=== PATIENT | female | born 1960 | race Caucasian/White ===

== ENCOUNTER 2016-12-21 11:36 | Emergency (ER) | payer OTHER ==
--- NOTE | 2016-12-21 13:04 | DIAGNOSTIC IMAGING REPORT ---
PROCEDURE: XR CHEST 2 VIEW INDICATION: SHORTNESS OF BREATH TECHNIQUE: PA and lateral views. COMPARISON: None. FINDINGS: Lungs are clear. Heart and mediastinum are normal. Thorax is normal. IMPRESSION: 1. Negative chest.
--- NOTE | 2016-12-21 14:00 | ED NURSING NOTES ---
Clinical Report - Nurses Formerly [facility] [address] [place] [address] 12/21/2016 11:37 Patient: LUIS CALDERÓN TRIAGE Triage time 11:40 Dec 21 2016. Acuity: LEVEL 3. Chief Complaint: DIZZINESS and WEAKNESS and (Per EMT vitals stable prior to coming in 100%RA SpO2, Patient woke up at 0330 with a GONZALEZ , she was dizzy and nauseaous at 0630, she started with chest pain and epigastric pain that has since resolved, patient has hx of GERD). SEPSIS SCREEN: Sepsis Screen. Negative (no infection suspected/documented). AYLIN COMA SCORE: [place] Coma Scale: 15- eyes open spontaneously (4); best verbal response- oriented x 4 (5); best motor response- obeys commands (6). --11:50 Silvia Arndt R.N. 11:40 12/21/16. BP: 146/71 (regular adult cuff) taken on the left arm, while lying. HR: 85. RR: 20 (regular). O2 saturation: 100% on room air. Temp: 98.1 F (oral). Pain level now: 0/10. --11:50 Silvia Arndt R.N. Weight: 65.7 kg stated. Height/Length: 62 inches Per Patient. BMI: 26.5. --11:46 Silvia Arndt R.N. Medications Zantac Oral. --11:44 Silvia Arndt R.N. Allergies Aspirin.(nausea) --11:44 Silvia Arndt R.N. History Arrived by EMS. Historian: EMS and patient. This started today. Onset. (0330). ( Patient game breathing very fast, she complained on numbness and tingling in extremities, she is now 8 minutes later breathing normally and numbness and tingling has gone away). She has had nausea, a headache, vomiting and weakness. Treatment AUDIO VISUAL COORDINATOR: None. PAST MEDICAL HX: Last normal menstrual period- 2006. ( GERD hx). SOCIAL HX: Smoker- current status unknown. Occasional alcohol use; consumes wine. No drug use. Infectious disease exposure. 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 ABUSE ASSESSMENT: No report of abuse. --11:50 Silvia Arndt R.N. PROBLEMS: Lumbar Radiculopathy. Gastroesophageal Reflux Disease. Headache. --11:44 Silvia Arndt R.N. ADDITIONAL SURGERIES: Appendectomy. Breast Biopsy. --11:44 Silvia Arndt R.N. Interventions ID band on patient. To treatment room. --11:50 Silvia Arndt R.N. PHYSICAL ASSESSMENT To room via stretcher. Patient gowned. ( Patient complains of diarrhea). GENERAL / NEURO / PSYCH: Oriented X 4. Appears in pain and anxious. Alert. Speech within normal limits. ( very anxious and hyperventilating). HEENT: No facial asymmetry noted. Pupils equal, round and reactive to light. RESPIRATORY: Mild respiratory distress (panicky). Breath sounds within normal limits. CVS: Normal sinus rhythm noted. Capillary refill less than 2 seconds. GI / : The patient has had nausea. Emesis noted. Has vomited once. Abdomen soft and nontender. Abnormal bowel sounds present. SKIN: Skin is warm. --11:52 Silvia Arndt R.N. NURSING PROGRESS NOTES The plan of care for this patient has been created. Monitoring of patient in place. Patient gowned. Head of bed elevated. Reassurance given. Two patient identifiers checked. Call light placed in reach. Side rails up x 2. Bed placed in lowest position. Brakes of bed on. Patient ready for evaluation- chart flagged and ED physician notified. --11:52 Silvia Arndt R.N. 11:54 12/21/2016 Site #1 started prior to arrival by EMS via IV in the right wrist with an 20g angiocath. --11:54 Silvia Arndt R.N. EKG time: (11:54). EKG was performed by a ashley and shown to the ED physician. --11:59 Rossy Mclaughlin 12:08 12/21/2016 Started bag #1 1000 mL IV Fluids IV NS (Saline); at 1000 mL/hr over 1 hour(s) via site #1 via dial-a-flow. Allergies verified and confirmed 5 rights. IV patency established. IV site checked: no pain, redness, or swelling. IV flushed thoroughly pre- and post-medication administration (EMS started in ambulance). --12:08 Silvia Arndt R.N. ( Patient cold and requests more blankets, dizzy still, GONZALEZ between temples). --12:19 Silvia Arndt R.N. 12:18 12/21/16. BP: 105/54 (regular adult cuff) taken on the left arm, while lying. HR: 78. RR: 18 (regular). O2 saturation: 98% on room air. Pain level now: 0/10. --12:19 Silvia Arndt R.N. Patient transported to radiology by [facility] with [employer]. (12:32 Dec 21 2016). --12:32 Silvia Arndt R.N. 12:46 12/21/2016 Zofran (Ondansetron HCl) IVP 4 mg given over 1 minute(s) via site #1. Allergies verified and confirmed 5 rights. IV patency established. IV site checked: no pain, redness, or swelling. IV flushed thoroughly pre- and post-medication administration. IVP given by RN. --12:46 Silvia Arndt R.N. Patient transported to radiology by [facility] [employer] [facility] [employer]. (12:46 Dec 21 2016). --12:46 Silvia Arndt R.N. 12:50 12/21/2016 IV Fluids IV NS Discontinued: bag #1 completed. Total amount infused: 1000 mL. IV patency established. IV site checked: no pain, redness, or swelling. IV flushed thoroughly. --12:50 Silvia Arndt R.N. Patient returned from radiology by [employer] [facility] [employer]. (12:55 Dec 21 2016). --12:55 Silvia Arndt R.N. 13:10 12/21/2016 Started bag #1 1000 mL IV Fluids IV NS (Saline); at 500 mL/hr over 2 hour(s) via site #1 via IV pump. Allergies verified and confirmed 5 rights. IV patency established. IV site checked: no pain, redness, or swelling. IV flushed thoroughly pre- and post-medication administration. --13:10 Silvia Arndt R.N. 13:13 12/21/2016 PHENERGAN (Promethazine HCl) IVP 12.5 mg given over 1 minute(s) via site #1. Allergies verified and confirmed 5 rights. IV patency established. IV site checked: no pain, redness, or swelling. IV flushed thoroughly pre- and post-medication administration. IVP given by RN. --13:13 Silvia Arndt R.N. ( Patients friend at bedside, patient placed on monitors and 2L NC). --13:14 Silvia Arndt R.N. 13:13 12/21/16. BP: 113/54 (regular adult cuff) taken on the left arm, while lying. HR: 74. RR: 16. O2 saturation: 100% on nasal cannula at 2 liters/minute. Pain level now: 0/10. --13:14 Silvia Arndt R.N. 13:15 12/21/2016 Zofran IVP Response: pain is improving. Symptoms are the same. The patient feels the same. --13:15 Silvia Arndt R.N. ( Patient felt very dizzy after receiving phenergan, explained to her to breath through her nose and out through her mouth in a controlled manner and she instantly started feeling better, dizziness went away. She wants to hold off on the Valium for now.). --13:21 Silvia Arndt R.N. ( Patient sleeping, easily aroused, feeling better, nausea gone away). --13:29 Sivlia Arndt R.N. 13:36 12/21/2016 PHENERGAN IVP Response: pain is gone now. Symptoms have improved the patient feels better. --13:36 Silvia Arndt R.N. 14:00 12/21/16. BP: 105/56 (regular adult cuff) taken on the left arm, while lying. HR: 82. RR: 16 (regular). O2 saturation: 98% on room air. Pain level now: 0/10. --14:24 Silvia Arndt R.N. Intake & Output Emesis output: 150 mL; return noted as brown. --12:00 Rossy Mclaughlin. DISPOSITION / DISCHARGE 14:24 12/21/2016 IV Fluids IV NS Discontinued: bag #2 discontinued upon discharge. Total amount infused: 634 mL. IV patency established. IV site checked: no pain, redness, or swelling. IV flushed thoroughly. --14:25 Silvia Arndt R.N. 14:37 12/21/2016 Site #1 removed upon discharge. Bandaid applied. --14:37 Silvia Arndt R.N. Departure time: 14:37 Dec 21 2016. Condition at departure: improved. No learning barriers present. Discharge instructions provided and reviewed with the patient. Reviewed warnings (No driving with anti nausea medication). Reviewed medication(s) side effects, precautions and dosing information. Prescription(s) given to the patient. Patient verbalized understanding. Written instructions provided in Macedonian. The patient was discharged by the physician. She was discharged home and accompanied by neighbor. She left the Emergency Department ambulatory and via private vehicle. Driving (neighbor). --14:37 Silvia Arndt R.N. 14:24 12/21/16. BP: 105/56. HR: 80. RR: 16 (regular). O2 saturation: 94% on room air. Temp: 98.2 F (oral). Pain level now: 0/10. --14:37 Silvia Arndt R.N. Locked/Released at 12/21/2016 14:40 by Silvia Arndt R.N.
--- NOTE | 2016-12-21 14:00 | ED ORDER SUMMARY ---
..... Patient: LUIS CALDERÓN OrderSheet [facility] VisitID: [id number] [place] [address] 56y, F Registration Date/Time: 12/21/2016 ORDER SHEET Weight: 65.7 kg (stated) Allergies: Aspirin GENERAL ORDERS: Chest 2V Urgent (12:20 12/21/2016 PHutchinson DO) (Ack 12:30 Harmannandez) (12:46 JSanders R.N.) Software Test Technician (Continuous) (12:20 12/21/2016 PHutchinson DO) (Ack 12:31 Harmannandez) (13:03 JSanders R.N.) UA-Culture if indicated Urgent (12:20 12/21/2016 PHutchinson DO) (Ack 12:31 Myriam) (14:25 JSanders R.N.) (Cancelled: Patient [id number] JSanders R.N.) Cardiac Panel Stat (12:20 12/21/2016 PHutchinson DO) (12:25 JSanders R.N.) BNP Urgent (12:20 12/21/2016 PHutchinson DO) (12:25 JSanders R.N.) Amylase Urgent (12:20 12/21/2016 PHutchinson DO) (12:25 JSanders R.N.) PT with INR Urgent (12:20 12/21/2016 PHutchinson DO) (12:25 JSanders R.N.) Oxygen (2 L/min) (NC) (12:20 12/21/2016 PHutchinson DO) (Ack 12:31 Harmannandez) (13:03 JSanders R.N.) Pulse oximeter (12:20 12/21/2016 PHutchinson DO) (12:24 JSanders R.N.) EKG - ER Stat (12:20 12/21/2016 PHutchinson DO) (12:24 JSanders R.N.) Vitals (12:20 12/21/2016 PHutchinson DO) (12:24 JSanders R.N.) CT Head wo Cont Urgent (12:38 12/21/2016 PHutchinson DO) (Ack 12:40 Myriam) (14:17 JSanders R.N.) (Cancelled: Patient [id number]:17 JSanders R.N.) MEDICATION ORDERS: Phenergan IV 12.5 mg (HIGH ALERT MEDICATION, NOW) (12:33 12/21/2016 [facility]) (Ack 12:46 JSanders R.N.) (13:13 JSanders R.N.) IV FLUIDS: IV NS : initial bolus 1000 mL (1000 mL/hr), then 1000 mL/hr for X1 (NOW) (12:06 12/21/2016 JSanders R.N. per protocol) (12:08 JSanders R.N.) IV NS : initial bolus 1000 mL (1000 mL/hr), then 500 mL/hr for X2 (NOW) (12:20 12/21/2016 [facility]) (Ack 12:46 JSanders R.N.) (13:10 JSanders R.N.) Zofran IV 4 mg (NOW) (12:33 12/21/2016 [facility]) (12:46 JSanders R.N.) Valium IV 2 mg (HIGH ALERT MEDICATION, NOW) (12:33 12/21/2016 [facility]) (Ack 12:46 JSanders R.N.) (Cancelled: Patient [id number]:25 JSanders R.N.) ORDER SHEET NOTES: [Electronically signed by Silvia Arndt R.N. (14:40 12/21/2016)] [Electronically signed by Javier Peña DO (17:16 12/21/2016)] [Electronically locked/signed by Silvia Arndt R.N. (14:40 12/21/2016)]
--- NOTE | 2016-12-21 14:00 | ED NURSING NOTES ---
Clinical Report - Nurses Formerly [facility] [address] [place] [address] 12/21/2016 11:37 Patient: LUIS CALDERÓN TRIAGE Triage time 11:40 Dec 21 2016. Acuity: LEVEL 3. Chief Complaint: DIZZINESS and WEAKNESS and (Per EMT vitals stable prior to coming in 100%RA SpO2, Patient woke up at 0330 with a GONZALEZ , she was dizzy and nauseaous at 0630, she started with chest pain and epigastric pain that has since resolved, patient has hx of GERD). SEPSIS SCREEN: Sepsis Screen. Negative (no infection suspected/documented). AYLIN COMA SCORE: [place] Coma Scale: 15- eyes open spontaneously (4); best verbal response- oriented x 4 (5); best motor response- obeys commands (6). --11:50 Silvia Arndt R.N. 11:40 12/21/16. BP: 146/71 (regular adult cuff) taken on the left arm, while lying. HR: 85. RR: 20 (regular). O2 saturation: 100% on room air. Temp: 98.1 F (oral). Pain level now: 0/10. --11:50 Silvia Arndt R.N. Weight: 65.7 kg stated. Height/Length: 62 inches Per Patient. BMI: 26.5. --11:46 Silvia Arndt R.N. Medications Zantac Oral. --11:44 Silvia Arndt R.N. Allergies Aspirin.(nausea) --11:44 Silvia Arndt R.N. History Arrived by EMS. Historian: EMS and patient. This started today. Onset. (0330). ( Patient game breathing very fast, she complained on numbness and tingling in extremities, she is now 8 minutes later breathing normally and numbness and tingling has gone away). She has had nausea, a headache, vomiting and weakness. Treatment UTILITY MECHANIC: None. PAST MEDICAL HX: Last normal menstrual period- 2006. ( GERD hx). SOCIAL HX: Smoker- current status unknown. Occasional alcohol use; consumes wine. No drug use. Infectious disease exposure. 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 ABUSE ASSESSMENT: No report of abuse. --11:50 Silvia Arndt R.N. PROBLEMS: Lumbar Radiculopathy. Gastroesophageal Reflux Disease. Headache. --11:44 Silvia Arndt R.N. ADDITIONAL SURGERIES: Appendectomy. Breast Biopsy. --11:44 Silvia Arndt R.N. Interventions ID band on patient. To treatment room. --11:50 Silvia Arndt R.N. PHYSICAL ASSESSMENT To room via stretcher. Patient gowned. ( Patient complains of diarrhea). GENERAL / NEURO / PSYCH: Oriented X 4. Appears in pain and anxious. Alert. Speech within normal limits. ( very anxious and hyperventilating). HEENT: No facial asymmetry noted. Pupils equal, round and reactive to light. RESPIRATORY: Mild respiratory distress (panicky). Breath sounds within normal limits. CVS: Normal sinus rhythm noted. Capillary refill less than 2 seconds. GI / : The patient has had nausea. Emesis noted. Has vomited once. Abdomen soft and nontender. Abnormal bowel sounds present. SKIN: Skin is warm. --11:52 Silvia Arndt R.N. NURSING PROGRESS NOTES The plan of care for this patient has been created. Monitoring of patient in place. Patient gowned. Head of bed elevated. Reassurance given. Two patient identifiers checked. Call light placed in reach. Side rails up x 2. Bed placed in lowest position. Brakes of bed on. Patient ready for evaluation- chart flagged and ED physician notified. --11:52 Silvia Arndt R.N. 11:54 12/21/2016 Site #1 started prior to arrival by EMS via IV in the right wrist with an 20g angiocath. --11:54 Silvia Arndt R.N. EKG time: (11:54). EKG was performed by a ashley and shown to the ED physician. --11:59 Rossy Mclaughlin 12:08 12/21/2016 Started bag #1 1000 mL IV Fluids IV NS (Saline); at 1000 mL/hr over 1 hour(s) via site #1 via dial-a-flow. Allergies verified and confirmed 5 rights. IV patency established. IV site checked: no pain, redness, or swelling. IV flushed thoroughly pre- and post-medication administration (EMS started in ambulance). --12:08 Silvia Arndt R.N. ( Patient cold and requests more blankets, dizzy still, GONZALEZ between temples). --12:19 Silvia Arndt R.N. 12:18 12/21/16. BP: 105/54 (regular adult cuff) taken on the left arm, while lying. HR: 78. RR: 18 (regular). O2 saturation: 98% on room air. Pain level now: 0/10. --12:19 Silvia Arndt R.N. Patient transported to radiology by [employer] [facility] [employer]. (12:32 Dec 21 2016). --12:32 Silvia Arndt R.N. 12:46 12/21/2016 Zofran (Ondansetron HCl) IVP 4 mg given over 1 minute(s) via site #1. Allergies verified and confirmed 5 rights. IV patency established. IV site checked: no pain, redness, or swelling. IV flushed thoroughly pre- and post-medication administration. IVP given by RN. --12:46 Silvia Arndt R.N. Patient transported to radiology by [employer] [facility] [employer]. (12:46 Dec 21 2016). --12:46 Silvia Arndt R.N. 12:50 12/21/2016 IV Fluids IV NS Discontinued: bag #1 completed. Total amount infused: 1000 mL. IV patency established. IV site checked: no pain, redness, or swelling. IV flushed thoroughly. --12:50 Silvia Arndt R.N. Patient returned from radiology by [employer] [facility] [employer] (12:55 Dec 21 2016). --12:55 Silvia Arndt R.N. 13:10 12/21/2016 Started bag #1 1000 mL IV Fluids IV NS (Saline); at 500 mL/hr over 2 hour(s) via site #1 via IV pump. Allergies verified and confirmed 5 rights. IV patency established. IV site checked: no pain, redness, or swelling. IV flushed thoroughly pre- and post-medication administration. --13:10 Silvia Arndt R.N. 13:13 12/21/2016 PHENERGAN (Promethazine HCl) IVP 12.5 mg given over 1 minute(s) via site #1. Allergies verified and confirmed 5 rights. IV patency established. IV site checked: no pain, redness, or swelling. IV flushed thoroughly pre- and post-medication administration. IVP given by RN. --13:13 Silvia Arndt R.N. ( Patients friend at bedside, patient placed on monitors and 2L NC). --13:14 Silvia Arndt R.N. 13:13 12/21/16. BP: 113/54 (regular adult cuff) taken on the left arm, while lying. HR: 74. RR: 16. O2 saturation: 100% on nasal cannula at 2 liters/minute. Pain level now: 0/10. --13:14 Silvia Arndt R.N. 13:15 12/21/2016 Zofran IVP Response: pain is improving. Symptoms are the same. The patient feels the same. --13:15 Silvia Arndt R.N. ( Patient felt very dizzy after receiving phenergan, explained to her to breath through her nose and out through her mouth in a controlled manner and she instantly started feeling better, dizziness went away. She wants to hold off on the Valium for now.). --13:21 Silvia Arndt R.N. ( Patient sleeping, easily aroused, feeling better, nausea gone away). --13:29 Silvia Arndt R.N. 13:36 12/21/2016 PHENERGAN IVP Response: pain is gone now. Symptoms have improved the patient feels better. --13:36 Silvia Arndt R.N. 14:00 12/21/16. BP: 105/56 (regular adult cuff) taken on the left arm, while lying. HR: 82. RR: 16 (regular). O2 saturation: 98% on room air. Pain level now: 0/10. --14:24 Silvia Arndt R.N. Intake & Output Emesis output: 150 mL; return noted as brown. --12:00 Rossy Mclaughlin. DISPOSITION / DISCHARGE 14:24 12/21/2016 IV Fluids IV NS Discontinued: bag #2 discontinued upon discharge. Total amount infused: 634 mL. IV patency established. IV site checked: no pain, redness, or swelling. IV flushed thoroughly. --14:25 Silvia Arndt R.N. 14:37 12/21/2016 Site #1 removed upon discharge. Bandaid applied. --14:37 Silvia Arndt R.N. Departure time: 14:37 Dec 21 2016. Condition at departure: improved. No learning barriers present. Discharge instructions provided and reviewed with the patient. Reviewed warnings (No driving with anti nausea medication). Reviewed medication(s) side effects, precautions and dosing information. Prescription(s) given to the patient. Patient verbalized understanding. Written instructions provided in Italian. The patient was discharged by the physician. She was discharged home and accompanied by neighbor. She left the Emergency Department ambulatory and via private vehicle. Driving (neighbor). --14:37 Silvia Arndt R.N. 14:24 12/21/16. BP: 105/56. HR: 80. RR: 16 (regular). O2 saturation: 94% on room air. Temp: 98.2 F (oral). Pain level now: 0/10. --14:37 Silvia Arndt R.N. Locked/Released at 12/21/2016 14:40 by Silvia Arndt R.N.
--- NOTE | 2016-12-21 14:00 | ED CLINICAL REPORT ---
Clinical Report - Physicians/Mid Levels [facility] [address] [place] [address] 12/21/2016 11:37 Patient: LUIS CALDERÓN Time Seen: 12:18. Arrived- By ambulance. Historian- patient and EMS personnel. HISTORY OF PRESENT ILLNESS Chief Complaint: DIZZINESS. Severity described as severe at its maximum. When seen in the E.D., severity described as severe. Modifying factors- worsened by standing up and changing position. Relieved by rest, quiet room and dark room. Described as a sense of movement and feeling off balance. Not described as feeling faint or weak all over or a sense of confusion. This started today and is still present. It was gradual in onset and has been waxing/waning. The patient has had nausea and vomiting. No bilious emesis or blood-tinged emesis. No hearing loss, tinnitus or ear pain. (Patient game breathing very fast, she complained on numbness and tingling in extremities, she is now 8 minutes later breathing normally and numbness and tingling has gone away). She has had nausea, a headache, vomiting and weakness). Similar symptoms previously: ( Seen at [facility] ED about 5 years ago for very similar symptoms). Recent medical care: Not recently seen/assessed. REVIEW OF SYSTEMS The patient has had a mild headache. The headache has been similar to previous ones and generalized weakness. No double vision, chest pain, palpitations, black stools or numbness. No fever, sore throat, cough, difficulty breathing or abdominal pain. No difficulty with urination, skin rash or joint pain. The patient has had difficulty walking. The patient has also had coordination problems. She has had diarrhea (today). This has occurred several times. It has been watery. All systems otherwise negative, except as recorded above. PAST HISTORY ( PCP: Dr Garrett ([facility]) Chronic lower back pain (with MRI revealing disc bulges and radiculopathy) Vertigo GERD. Migraine headache. SVT. Crush Injury, Upper Extremity. Surgeries: Appendectomy. Right breast lumpectomy.). Medications: Zantac Oral. Allergies: Aspirin.(nausea). SOCIAL HISTORY Never smoker. Occasional alcohol use. No drug use. ADDITIONAL NOTES The nursing notes have been reviewed. PHYSICAL EXAM Vital Signs: 12/21/2016 11:40 BP: 146/71. HR: 85. RR: 20. O2 saturation: 100%. Temp: 98.1 F. Pain level now: 0/10. Appearance: Alert. Anxious. The patient is agitated. Patient in moderate distress. Eyes: Pupils equal, round and reactive to light. Extraocular movements normal. ENT: Normal ENT inspection. TM's normal. Moist mucous membranes. Pharynx normal. Neck: Normal inspection. Neck supple. CVS: Normal heart rate and rhythm. Heart sounds normal. Pulses normal. Respiratory: No respiratory distress. Breath sounds normal. Abdomen: Soft and nontender. Back: Normal inspection. Skin: Skin warm and dry. Normal skin color. No rash. Normal skin turgor. Extremities: Extremities exhibit normal ROM. No lower extremity edema. Neuro: Alert. Oriented X 3. Abnormal mood/affect. Speech normal. Cranial nerves normal (as tested). No cerebellar findings. No motor deficit. No sensory deficit. Reflexes normal. Reflex exam: right patellar 2+, left patellar 2+, right Achilles 2+ and left Achilles 2+. LABS, X-RAYS, AND EKG EKG: EKG time: (11:54). Normal sinus rhythm. Rate: 75. Normal P waves. Normal TEDDY. Normal QRS complex. Normal axis. Normal ST and T waves. The study has been interpreted contemporaneously by me. The EKG appears to be a good tracing. Rhythm Strip #1: Normal sinus rhythm. Regular rhythm. Narrow QRS complexes. No ectopy. Laboratory Tests: CBC w Diff: (JOSIE: 12/21/2016 12:00) ( MsgRcvd 12/21/2016 12:37) Final results Test Result Flag Units (Reference) WHITE BLOOD COUNT 9.1 K/uL (4.5-11.5) RED BLOOD COUNT 4.98 M/uL (4.00-5.20) HEMOGLOBIN 14.9 gm/dL (12.0-16.0) HEMATOCRIT 44.2 % (36.0-46.0) MEAN CELL VOLUME 89 fL (80-100) MEAN CORPUSCULAR HGB 30 pg (26-34) MEAN CORPUSCULAR HGB CONC 34 g/dL (31-37) RED CELL DISTRIBUTION WIDTH 12.1 % (11.6-14.8) PLATELET COUNT 300 K/uL (150-400) NEUTROPHIL % 86.1 H % (50-75) LYMPH % 11.1 L % (25-40) MONO % 2.4 L % (3-14) EOSINOPHIL % 0.1 % (0-4) BASOPHIL % 0.3 % (0-2) PT with INR: (JOSIE: 12/21/2016 12:00) ( [facility] 12/21/2016 12:41) Final results Test Result Flag Units (Reference) INR 0.8 (0.8-1.2) Low Intensity Therapy: INR 1.5-2.0 PT range 18.5-23.1Mod.Intensity Therapy: INR 2.0-3.0 PT range 23.1-31.5High Intensity Therapy: INR 2.5-3.5 PT range 27.4-35.5High Intensity Therapy 2: INR 3.0-4.0 PT range 31.5-39.3 BNP: (JOSIE: 12/21/2016 12:00) ( [facility] 12/21/2016 13:01) Final results Test Result Flag Units (Reference) B-TYPE NATRIURETIC PEPTIDE 7.6 pg/ml (5-100) Amylase: (JOSIE: 12/21/2016 12:00) ( [facility] 12/21/2016 12:52) Final results Test Result Flag Units (Reference) AMYLASE 48 U/L (25-115) CHEM 13 PANEL: (JOSIE: 12/21/2016 12:00) ( [facility] 12/21/2016 13:09) Final results Test Result Flag Units (Reference) GLUCOSE 171 H mg/dL (70-110) BUN 13 mg/dL (7-18) CREATININE 0.8 mg/dL (0.6-1.3) Estimated GFR >60 mL/min Estimated GFR- >60 mL/min Note: Persistent reduction over 3 months in eGFR<60 mL/min/1.73 m2 defines CKD. Patients with eGFR values>=60 mL/min/1.73 m2 may also have CKD if evidence ofpersistent proteinuria. Additional information may be foundat www.kidney.org. SODIUM 137 mmol/L (136-145) POTASSIUM 3.2 L mmol/L (3.5-5.1) CHLORIDE 101 mmol/L (98-107) CARBON DIOXIDE 19 L mmol/L (21-32) CALCIUM 9.2 mg/dL (8.5-10.1) TOTAL PROTEIN 7.5 g/dL (6.4-8.2) ALBUMIN 3.8 g/dL (3.3-5.0) BILIRUBIN, TOTAL 0.6 mg/dL (0.0-1.0) ALKALINE PHOSPHATASE 51 U/L (46-116) AST (SGOT) 27 U/L (15-37) ALT (SGPT) 24 U/L (12-78) MAGNESIUM 1.7 L mg/dL (1.8-2.4) CPK 77 U/L (24-260) TROPONIN I <0.05 ng/mL (0.00-1.5) TROPONIN REFERENCE RANGE:<0.1 NEGATIVE0.1-1.5 INDETERMINANT>1.5 POSITIVE . Pulse Oximetry: 12/21/2016 11:40 O2 saturation: 100%. (FIO2 - room air). Interpretation: normal. PROGRESS AND PROCEDURES Course of Care: Normal Saline 1 liter IVPB given. Valium 2 mg IVP given. Phenergan 12.5 mg IVP given. Zofran 4 mg IVP given. 13:40 12/21/16. Patient is stable. Physical exam findings are improved. Symptoms much better. Normal CN exam. Pt has refused CT scan after full discussion of risks and benefits. Patient/family counseled. Old ED records reviewed. Disposition: Discharged. Condition: stable and improved. CLINICAL IMPRESSION Dizziness Acute vertigo of unknown cause. Diarrhea INSTRUCTIONS Do not work for three days. Drink plenty of fluids. No alcohol until released. (You have declined the CT scan of your head and understand that I cannot rule out other pathology without this). Warnings: Further evaluation is necessary. SEDATIVE MEDICATION: You were given sedative medication during your visit. Do not drive or operate dangerous machinery. CONTROLLED SUBSTANCE WARNINGS. GENERAL WARNINGS: Return or contact your physician immediately if your condition worsens or changes unexpectedly, if not improving as expected, or if other problems arise. Your Current Medications: CONTINUE TAKING THE FOLLOWING MEDICATIONS: Zantac Oral. Prescription Medications: Zofran (orally disintegrating tablets) 4 mg: take 1-2 orally every 8 hours as needed for nausea and vomiting. Dispense ten (10). No refill. Substitution is permissible. Valium 5 mg: Take 1 orally every 8 hours as needed for anxiety. Dispense fifteen (15). No refills. Substitution is permissible. Antivert 25mg: Take 1 tablet orally every 8 hours as needed for dizziness. Dispense thirty (30). No refills. Substitution is permissible. Follow-up: Follow up with your doctor [facility] - primary care or the Walk-in clinic tomorrow. (Electronically signed by Javier Peña DO 12/21/2016 17:16)
--- NOTE | 2016-12-21 14:00 | ED ORDER SUMMARY ---
..... Patient: LUIS CALDERÓN OrderSheet [facility] VisitID: [id number] [place] [address] 56y, F Registration Date/Time: 12/21/2016 ORDER SHEET Weight: 65.7 kg (stated) Allergies: Aspirin GENERAL ORDERS: Chest 2V Urgent (12:20 12/21/2016 PHutchinson DO) (Ack 12:30 Harmannandez) (12:46 JSanders R.N.) Renal Nurse (Continuous) (12:20 12/21/2016 PHutchinson DO) (Ack 12:31 Harmannandez) (13:03 JSanders R.N.) UA-Culture if indicated Urgent (12:20 12/21/2016 PHutchinson DO) (Ack 12:31 Myriam) (14:25 JSanders R.N.) (Cancelled: Patient [id number] JSanders R.N.) Cardiac Panel Stat (12:20 12/21/2016 PHutchinson DO) (12:25 JSanders R.N.) BNP Urgent (12:20 12/21/2016 PHutchinson DO) (12:25 JSanders R.N.) Amylase Urgent (12:20 12/21/2016 PHutchinson DO) (12:25 JSanders R.N.) PT with INR Urgent (12:20 12/21/2016 PHutchinson DO) (12:25 JSanders R.N.) Oxygen (2 L/min) (NC) (12:20 12/21/2016 PHutchinson DO) (Ack 12:31 Harmannandez) (13:03 JSanders R.N.) Pulse oximeter (12:20 12/21/2016 PHutchinson DO) (12:24 JSanders R.N.) EKG - ER Stat (12:20 12/21/2016 PHutchinson DO) (12:24 JSanders R.N.) Vitals (12:20 12/21/2016 PHutchinson DO) (12:24 JSanders R.N.) CT Head wo Cont Urgent (12:38 12/21/2016 PHutchinson DO) (Ack 12:40 Myriam) (14:17 JSanders R.N.) (Cancelled: Patient [id number] JSanders R.N.) MEDICATION ORDERS: Phenergan IV 12.5 mg (HIGH ALERT MEDICATION, NOW) (12:33 12/21/2016 [facility]) (Ack 12:46 JSanders R.N.) (13:13 JSanders R.N.) IV FLUIDS: IV NS : initial bolus 1000 mL (1000 mL/hr), then 1000 mL/hr for X1 (NOW) (12:06 12/21/2016 JSanders R.N. per protocol) (12:08 JSanders R.N.) IV NS : initial bolus 1000 mL (1000 mL/hr), then 500 mL/hr for X2 (NOW) (12:20 12/21/2016 [facility]) (Ack 12:46 JSanders R.N.) (13:10 JSanders R.N.) Zofran IV 4 mg (NOW) (12:33 12/21/2016 [facility]) (12:46 JSanders R.N.) Valium IV 2 mg (HIGH ALERT MEDICATION, NOW) (12:33 12/21/2016 [facility]) (Ack 12:46 JSanders R.N.) (Cancelled: Patient [id number] JSanders R.N.) ORDER SHEET NOTES: [Electronically signed by Silvia Arndt R.N. (14:40 12/21/2016)] [Electronically signed by Javier Peña DO (17:16 12/21/2016)] [Electronically locked/signed by Silvia Arndt R.N. (14:40 12/21/2016)]
--- NOTE | 2016-12-21 14:00 | ED CLINICAL REPORT ---
Clinical Report - Physicians/Mid Levels [facility] [address] [place] [address] 12/21/2016 11:37 Patient: LIUS CALDERÓN Time Seen: 12:18. Arrived- By ambulance. Historian- patient and EMS personnel. HISTORY OF PRESENT ILLNESS Chief Complaint: DIZZINESS. Severity described as severe at its maximum. When seen in the E.D., severity described as severe. Modifying factors- worsened by standing up and changing position. Relieved by rest, quiet room and dark room. Described as a sense of movement and feeling off balance. Not described as feeling faint or weak all over or a sense of confusion. This started today and is still present. It was gradual in onset and has been waxing/waning. The patient has had nausea and vomiting. No bilious emesis or blood-tinged emesis. No hearing loss, tinnitus or ear pain. (Patient game breathing very fast, she complained on numbness and tingling in extremities, she is now 8 minutes later breathing normally and numbness and tingling has gone away). She has had nausea, a headache, vomiting and weakness). Similar symptoms previously: ( Seen at [facility] ED about 5 years ago for very similar symptoms). Recent medical care: Not recently seen/assessed. REVIEW OF SYSTEMS The patient has had a mild headache. The headache has been similar to previous ones and generalized weakness. No double vision, chest pain, palpitations, black stools or numbness. No fever, sore throat, cough, difficulty breathing or abdominal pain. No difficulty with urination, skin rash or joint pain. The patient has had difficulty walking. The patient has also had coordination problems. She has had diarrhea (today). This has occurred several times. It has been watery. All systems otherwise negative, except as recorded above. PAST HISTORY ( PCP: Dr Garrett ([facility]) Chronic lower back pain (with MRI revealing disc bulges and radiculopathy) Vertigo GERD. Migraine headache. SVT. Crush Injury, Upper Extremity. Surgeries: Appendectomy. Right breast lumpectomy.). Medications: Zantac Oral. Allergies: Aspirin.(nausea). SOCIAL HISTORY Never smoker. Occasional alcohol use. No drug use. ADDITIONAL NOTES The nursing notes have been reviewed. PHYSICAL EXAM Vital Signs: 12/21/2016 11:40 BP: 146/71. HR: 85. RR: 20. O2 saturation: 100%. Temp: 98.1 F. Pain level now: 0/10. Appearance: Alert. Anxious. The patient is agitated. Patient in moderate distress. Eyes: Pupils equal, round and reactive to light. Extraocular movements normal. ENT: Normal ENT inspection. TM's normal. Moist mucous membranes. Pharynx normal. Neck: Normal inspection. Neck supple. CVS: Normal heart rate and rhythm. Heart sounds normal. Pulses normal. Respiratory: No respiratory distress. Breath sounds normal. Abdomen: Soft and nontender. Back: Normal inspection. Skin: Skin warm and dry. Normal skin color. No rash. Normal skin turgor. Extremities: Extremities exhibit normal ROM. No lower extremity edema. Neuro: Alert. Oriented X 3. Abnormal mood/affect. Speech normal. Cranial nerves normal (as tested). No cerebellar findings. No motor deficit. No sensory deficit. Reflexes normal. Reflex exam: right patellar 2+, left patellar 2+, right Achilles 2+ and left Achilles 2+. LABS, X-RAYS, AND EKG EKG: EKG time: (11:54). Normal sinus rhythm. Rate: 75. Normal P waves. Normal TEDDY. Normal QRS complex. Normal axis. Normal ST and T waves. The study has been interpreted contemporaneously by me. The EKG appears to be a good tracing. Rhythm Strip #1: Normal sinus rhythm. Regular rhythm. Narrow QRS complexes. No ectopy. Laboratory Tests: CBC w Diff: (JOSIE: 12/21/2016 12:00) ( MsgRcvd 12/21/2016 12:37) Final results Test Result Flag Units (Reference) WHITE BLOOD COUNT 9.1 K/uL (4.5-11.5) RED BLOOD COUNT 4.98 M/uL (4.00-5.20) HEMOGLOBIN 14.9 gm/dL (12.0-16.0) HEMATOCRIT 44.2 % (36.0-46.0) MEAN CELL VOLUME 89 fL (80-100) MEAN CORPUSCULAR HGB 30 pg (26-34) MEAN CORPUSCULAR HGB CONC 34 g/dL (31-37) RED CELL DISTRIBUTION WIDTH 12.1 % (11.6-14.8) PLATELET COUNT 300 K/uL (150-400) NEUTROPHIL % 86.1 H % (50-75) LYMPH % 11.1 L % (25-40) MONO % 2.4 L % (3-14) EOSINOPHIL % 0.1 % (0-4) BASOPHIL % 0.3 % (0-2) PT with INR: (JOSIE: 12/21/2016 12:00) ( [facility] 12/21/2016 12:41) Final results Test Result Flag Units (Reference) INR 0.8 (0.8-1.2) Low Intensity Therapy: INR 1.5-2.0 PT range 18.5-23.1Mod.Intensity Therapy: INR 2.0-3.0 PT range 23.1-31.5High Intensity Therapy: INR 2.5-3.5 PT range 27.4-35.5High Intensity Therapy 2: INR 3.0-4.0 PT range 31.5-39.3 BNP: (JOSIE: 12/21/2016 12:00) ( [facility] 12/21/2016 13:01) Final results Test Result Flag Units (Reference) B-TYPE NATRIURETIC PEPTIDE 7.6 pg/ml (5-100) Amylase: (JOSIE: 12/21/2016 12:00) ( [facility] 12/21/2016 12:52) Final results Test Result Flag Units (Reference) AMYLASE 48 U/L (25-115) CHEM 13 PANEL: (JOSIE: 12/21/2016 12:00) ( [facility] 12/21/2016 13:09) Final results Test Result Flag Units (Reference) GLUCOSE 171 H mg/dL (70-110) BUN 13 mg/dL (7-18) CREATININE 0.8 mg/dL (0.6-1.3) Estimated GFR >60 mL/min Estimated GFR- >60 mL/min Note: Persistent reduction over 3 months in eGFR<60 mL/min/1.73 m2 defines CKD. Patients with eGFR values>=60 mL/min/1.73 m2 may also have CKD if evidence ofpersistent proteinuria. Additional information may be foundat www.kidney.org. SODIUM 137 mmol/L (136-145) POTASSIUM 3.2 L mmol/L (3.5-5.1) CHLORIDE 101 mmol/L (98-107) CARBON DIOXIDE 19 L mmol/L (21-32) CALCIUM 9.2 mg/dL (8.5-10.1) TOTAL PROTEIN 7.5 g/dL (6.4-8.2) ALBUMIN 3.8 g/dL (3.3-5.0) BILIRUBIN, TOTAL 0.6 mg/dL (0.0-1.0) ALKALINE PHOSPHATASE 51 U/L (46-116) AST (SGOT) 27 U/L (15-37) ALT (SGPT) 24 U/L (12-78) MAGNESIUM 1.7 L mg/dL (1.8-2.4) CPK 77 U/L (24-260) TROPONIN I <0.05 ng/mL (0.00-1.5) TROPONIN REFERENCE RANGE:<0.1 NEGATIVE0.1-1.5 INDETERMINANT>1.5 POSITIVE . Pulse Oximetry: 12/21/2016 11:40 O2 saturation: 100%. (FIO2 - room air). Interpretation: normal. PROGRESS AND PROCEDURES Course of Care: Normal Saline 1 liter IVPB given. Valium 2 mg IVP given. Phenergan 12.5 mg IVP given. Zofran 4 mg IVP given. 13:40 12/21/16. Patient is stable. Physical exam findings are improved. Symptoms much better. Normal CN exam. Pt has refused CT scan after full discussion of risks and benefits. Patient/family counseled. Old ED records reviewed. Disposition: Discharged. Condition: stable and improved. CLINICAL IMPRESSION Dizziness Acute vertigo of unknown cause. Diarrhea INSTRUCTIONS Do not work for three days. Drink plenty of fluids. No alcohol until released. (You have declined the CT scan of your head and understand that I cannot rule out other pathology without this). Warnings: Further evaluation is necessary. SEDATIVE MEDICATION: You were given sedative medication during your visit. Do not drive or operate dangerous machinery. CONTROLLED SUBSTANCE WARNINGS. GENERAL WARNINGS: Return or contact your physician immediately if your condition worsens or changes unexpectedly, if not improving as expected, or if other problems arise. Your Current Medications: CONTINUE TAKING THE FOLLOWING MEDICATIONS: Zantac Oral. Prescription Medications: Zofran (orally disintegrating tablets) 4 mg: take 1-2 orally every 8 hours as needed for nausea and vomiting. Dispense ten (10). No refill. Substitution is permissible. Valium 5 mg: Take 1 orally every 8 hours as needed for anxiety. Dispense fifteen (15). No refills. Substitution is permissible. Antivert 25mg: Take 1 tablet orally every 8 hours as needed for dizziness. Dispense thirty (30). No refills. Substitution is permissible. Follow-up: Follow up with your doctor [facility] - primary care or the Walk-in clinic tomorrow. (Electronically signed by Javier Peña DO 12/21/2016 17:16)
--- NOTE | 2016-12-21 17:16 | ED MED RECONCILIATION SUMMARY ---
Patient: LUIS CALDERÓN Medication Reconciliation Report [facility] VisitID: [id number] [address] [place] [address] 56y, F Registration Date/Time: 12/21/2016 Weight: 65.7 kg Height/Length: 62 in. BMI: 26.5 ALLERGIES: Aspirin The patient's Home Medications are listed below: CONTINUE TAKING THE FOLLOWING MEDICATIONS: Zantac Oral The source(s) of the original Home Medication information: Not obtained. The following Medications were given to the patient in the Emergency Department: IV NS IV Fluids bolus 0, then 1000 mL/hr, administered: 12/21/2016 12:08:00 PM Zofran [IVP] IVP 4 mg, administered: 12/21/2016 12:46:00 PM IV NS IV Fluids bolus 0, then 500 mL/hr, administered: 12/21/2016 1:10:00 PM PHENERGAN [IVP] IVP 12.5 mg, administered: 12/21/2016 1:13:00 PM The following Medications were prescribed to the patient: Zofran (orally disintegrating tablets) 4 mg: take 1-2 orally every 8 hours as needed for nausea and vomiting. Dispense ten (10). No refill. Substitution is permissible. -- Javier Peña DO Valium 5 mg: Take 1 orally every 8 hours as needed for anxiety. Dispense fifteen (15). No refills. Substitution is permissible. -- Javier Peña DO Antivert 25mg: Take 1 tablet orally every 8 hours as needed for dizziness. Dispense thirty (30). No refills. Substitution is permissible. -- Javier Peña DO
--- NOTE | 2016-12-21 17:16 | ED MAR SUMMARY ---
..... Medication Administration Record [facility] [address] [place] [address] Patient: LUIS CALDERÓN Visit ID: [id number] 56y, F Weight: 65.7 kg Height/Length: 62 in BMI: 26.5 ALLERGIES: Aspirin Start 12:08 12/21/2016 Silvia Arndt R.N., Stop 12:50 12/21/2016 Silvia Arndt R.N. Medication Administered: IV NS (SALINE), Dose: IV Fluids over 1 hour(s), Rate: 1000 mL/hr, Dispensed: 1000 mL bag, Site: #1 right wrist. Medication Ordered: IV NS : initial bolus 1000 mL (1000 mL/hr), then 1000 mL/hr for X1 (NOW). Given 12:46 12/21/2016 Silvia Arndt R.N. Medication Administered: ZOFRAN [IVP] (ONDANSETRON HCL), Dose: 4 mg IVP over 1 minute(s), Site: #1 right wrist. Medication Ordered: Zofran IV 4 mg (NOW). Start 13:10 12/21/2016 Silvia Arndt R.N., Stop 14:24 12/21/2016 Silvia Arndt R.N. Medication Administered: IV NS (SALINE), Dose: IV Fluids over 2 hour(s), Rate: 500 mL/hr, Dispensed: 1000 mL bag, Site: #1 right wrist. Medication Ordered: IV NS : initial bolus 1000 mL (1000 mL/hr), then 500 mL/hr for X2 (NOW). Given 13:13 12/21/2016 Silvia Arndt R.N. Medication Administered: PHENERGAN [IVP] (PROMETHAZINE HCL), Dose: 12.5 mg IVP over 1 minute(s), Site: #1 right wrist. Medication Ordered: Phenergan IV 12.5 mg (HIGH ALERT MEDICATION, NOW).
--- NOTE | 2016-12-21 17:16 | ED MAR SUMMARY ---
..... Medication Administration Record [facility] [address] [place] [address] Patient: LUIS CALDERÓN Visit ID: [id number] 56y, F Weight: 65.7 kg Height/Length: 62 in BMI: 26.5 ALLERGIES: Aspirin Start 12:08 12/21/2016 Silvia Arndt R.N., Stop 12:50 12/21/2016 Silvia Arndt R.N. Medication Administered: IV NS (SALINE), Dose: IV Fluids over 1 hour(s), Rate: 1000 mL/hr, Dispensed: 1000 mL bag, Site: #1 right wrist. Medication Ordered: IV NS : initial bolus 1000 mL (1000 mL/hr), then 1000 mL/hr for X1 (NOW). Given 12:46 12/21/2016 Silvia Arndt R.N. Medication Administered: ZOFRAN [IVP] (ONDANSETRON HCL), Dose: 4 mg IVP over 1 minute(s), Site: #1 right wrist. Medication Ordered: Zofran IV 4 mg (NOW). Start 13:10 12/21/2016 Silvia Arndt R.N., Stop 14:24 12/21/2016 Silvia Arndt R.N. Medication Administered: IV NS (SALINE), Dose: IV Fluids over 2 hour(s), Rate: 500 mL/hr, Dispensed: 1000 mL bag, Site: #1 right wrist. Medication Ordered: IV NS : initial bolus 1000 mL (1000 mL/hr), then 500 mL/hr for X2 (NOW). Given 13:13 12/21/2016 Silvia Arndt R.N. Medication Administered: PHENERGAN [IVP] (PROMETHAZINE HCL), Dose: 12.5 mg IVP over 1 minute(s), Site: #1 right wrist. Medication Ordered: Phenergan IV 12.5 mg (HIGH ALERT MEDICATION, NOW).
--- NOTE | 2016-12-21 17:16 | ED DISCHARGE INSTRUCTIONS ---
Patient: LUIS CALDERÓN General Instructions [facility] VisitID: [id number] [place] [address] 56y, F Registration Date/Time: 12/21/2016 Dizziness Acute vertigo of unknown cause. Diarrhea INSTRUCTIONS Do not work for three days. Drink plenty of fluids. No alcohol until released. (You have declined the CT scan of your head and understand that I cannot rule out other pathology without this). Warnings: Further evaluation is necessary. SEDATIVE MEDICATION: You were given sedative medication during your visit. Do not drive or operate dangerous machinery. CONTROLLED SUBSTANCE WARNINGS. GENERAL WARNINGS: Return or contact your physician immediately if your condition worsens or changes unexpectedly, if not improving as expected, or if other problems arise. Your Current Medications: CONTINUE TAKING THE FOLLOWING MEDICATIONS: Zantac Oral. Prescription Medications: Zofran (orally disintegrating tablets) 4 mg: take 1-2 orally every 8 hours as needed for nausea and vomiting. Dispense ten (10). No refill. Substitution is permissible. Valium 5 mg: Take 1 orally every 8 hours as needed for anxiety. Dispense fifteen (15). No refills. Substitution is permissible. Antivert 25mg: Take 1 tablet orally every 8 hours as needed for dizziness. Dispense thirty (30). No refills. Substitution is permissible. Follow-up: Follow up with your doctor [facility] - primary care or the Walk-in clinic tomorrow. ADDITIONAL INFORMATION Dizziness [Uncertain Cause] Dizziness is a common symptom sometimes described as "lightheadedness" or feeling like you are going to faint. If it lasts for only a few seconds and is related to changes in position (such as getting up after lying or sitting for a long time), it is usually not a sign of anything serious. Dizziness that lasts for minutes to hours, or comes on for no apparent reason, may be a sign of a more serious problem (such as dehydration, a medicine reaction, disease of the heart or brain). Today's exam did not show an exact cause for your dizzy spell . Sometimes additional tests are required before a cause can be found. Therefore, it is important to follow up with your doctor if your symptoms continue. Home Care: 1) If a dizzy spell occurs and lasts more than a few seconds, lie down until it passes. If you are lying down, then you cannot hurt yourself by falling if you do faint. 2) Do not drive or operate dangerous equipment until the dizzy spells have stopped for at least 48 hours. 3) If dizzy spells occur with sudden standing, this may be a sign of mild dehydration. Drink extra fluids over the next few days. 4) If you recently started a new medicine or if you had the dose of a current medicine increased (especially blood pressure medicine), talk with the prescribing doctor about your symptoms. Dose adjustments may be needed. Follow Up with your doctor for further evaluation within the next seven days, if your symptoms continue. Get Prompt Medical Attention if any of the following occur: -- Worsening of your symptoms -- Fainting, headache or seizure -- Repeated vomiting -- Feeling like you or the room is spinning -- Chest, arm, neck, back or jaw pain -- Palpitations (the sense that your heart is fluttering or beating fast or hard) -- Shortness of breath -- Blood in vomit or stool (black or red color) -- Weakness of an arm or leg or one side of the face -- Difficulty with speech or vision Vertigo [Unknown Cause] The "inner ear" is located behind the middle ear. It is part of the balance center of your body. Disease of the inner ear causes vertigo -- a false feeling of motion. It feels as if you or the room is spinning. A vertigo attack may cause sudden nausea, vomiting and heavy sweating. Severe vertigo causes a loss of balance and can cause you to fall. During vertigo, small head movements and changes in body position will often make the symptoms worse. The causes of vertigo include: Inflammation of the inner ear Disease of the nerves to the inner ear Movement of calcium particles in the inner ear Poor blood flow to the balance centers of the brain An episode of vertigo may last seconds, minutes or hours. Once you are over the first episode, it may never return. However, sometimes symptoms may recur off and on over several weeks or longer, depending on the cause. There may be ringing in the ears or hearing loss, which may be temporary or permanent. Home Care: If symptoms are severe, rest quietly in bed. Change positions very slowly. There is usually one position that will feel best, such as lying on one side or lying on your back with your head slightly raised on pillows. Do not drive or work with dangerous machinery for one week after symptoms go away, in case the symptoms suddenly return. Take medicine as prescribed to relieve your symptoms. Unless another medicine was prescribed for nausea, vomiting and vertigo, you may use [id number] motion sickness pills, such as meclizine (Bonine, Bonamine, Antivert) or dimenhydrinate (Dramamine). Follow Up with your doctor or as directed by our staff. Tell the doctor if your ears keep ringing, or if your hearing does not return to normal. Get Prompt Medical Attention if any of the following occur: Vertigo gets worse and is not controlled by medicine prescribed Repeated vomiting not relieved by medicine prescribed Increased weakness or fainting Severe headache or unusually drowsy or confused Weakness of an arm or leg or one side of the face Difficulty with speech or vision Diarrhea, Uncertain Cause (Adult, Report Pending) Diarrhea has several possible causes. Commonstomach fluis caused by a virus. Food poisoning, bacteria or parasites are other causes for diarrhea. Only diarrhea caused by bacteria or parasites requires treatment with an antibiotic. Diarrhea from a virus or food poisoning improves with simple home treatment. A stool sample is needed to make the diagnosis of an infection with bacteria or parasites. Up to three stool specimens may be required to diagnose This may take up to two days to get the result. It may be necessary to wait until the stool test is complete to make the diagnosis and select the best antibiotic to prescribe. Home Care: If symptoms are severe, rest at home for the next 24 hours or until you are feeling better. You may use acetaminophen (Tylenol) or ibuprofen (Motrin, Advil) to control fever, unless another medicine was prescribed. [NOTE: If you have chronic liver or kidney disease or ever had a stomach ulcer or GI bleeding, talk with your doctor before using these medicines.] (Aspirin should never be used in anyone under 18 years of age who is ill with a fever. It may cause severe liver damage.) Avoid tobacco, caffeine and alcohol, which may worsen your symptoms. If anti-diarrhea medicine was prescribed, take this only as directed. Sometimes anti-diarrhea medicine can make your condition worse if the cause is an infectious diarrhea. Therefore, anti-diarrhea medicine should not be taken for this condition unless advised by your doctor. During The First 12-24 Hours follow the diet below: BEVERAGES: Sport drinks like Gatorade, soft drinks without caffeine; niecy greg, mineral water (plain or flavored), decaffeinated tea and coffee. SOUPS: Clear broth, consomm and bouillon DESSERTS: Plain gelatin (Jell-O), popsicles and fruit juice bars. During The Next 24 Hours you may add the following to the above: Hot cereal, plain toast, bread, rolls, crackers Plain noodles, rice, mashed potatoes, chicken noodle or rice soup Unsweetened canned fruit (avoid pineapple), bananas Limit fat intake to less than 15 grams per day by avoiding margarine, butter, oils, mayonnaise, sauces, gravies, fried foods, peanut butter, meat, poultry and fish. Limit fiber; avoid raw or cooked vegetables, fresh fruits (except bananas) and bran cereals. Limit caffeine and chocolate. No spices or seasonings except salt. During The Next 24 Hours Gradually resume a normal diet, as you feel better and your symptoms lessen. Follow Up with your doctor or as advised if you are not improving over the next two days. If you were asked to bring a specimen from home, bring the sample on the day of collection. You may call in 2 days (or as directed) for the results. Get Prompt Medical Attention if any of the following occur: Increasing abdominal pain or constant lower right abdominal pain Continued vomiting (unable to keep liquids down) Frequent diarrhea (more than 5 times a day) Blood in vomit or stool (black or red color) Reduced oral intake Dark urine, reduced urine output Weakness, dizziness, fainting Drowsiness, confusion, stiff neck or seizure Fever of 100.4F (38C) oral or higher, not better with fever medication New rash Ondansetron Oral disintegrating tablet What is this medicine? ONDANSETRON (on BANG se serge) is used to treat nausea and vomiting caused by chemotherapy. It is also used to prevent or treat nausea and vomiting after surgery. How should I use this medicine? These tablets are made to dissolve in the mouth. Do not try to push the tablet through the foil backing. With dry hands, peel away the foil backing and gently remove the tablet. Place the tablet in the mouth and allow it to dissolve, then swallow. While you may take these tablets with water, it is not necessary to do so. Talk to your banking center manager regarding the use of this medicine in children. Special care may be needed. What side effects may I notice from receiving this medicine? Side effects that you should report to your doctor or health post acute care registered nurse as soon as possible: allergic reactions like skin rash, itching or hives, swelling of the face, lips, or tongue breathing problems dizziness fast or irregular heartbeat feeling faint or lightheaded, falls fever and chills swelling of the hands and feet tightness in the chest Side effects that usually do not require medical attention (report to your doctor or health post acute care registered nurse if they continue or are bothersome): constipation or diarrhea headache What may interact with this medicine? Do not take this medicine with any of the following medications: -apomorphine -cisapride -dofetilide -dronedarone -pimozide -thioridazine -ziprasidone This medicine may also interact with the following medications: -carbamazepine -phenytoin -rifampicin -tramadol -other medicines that prolong the QT interval (cause an abnormal heart rhythm) What if I miss a dose? If you miss a dose, take it as soon as you can. If it is almost time for your next dose, take only that dose. Do not take double or extra doses. Where should I keep my medicine? Keep out of the reach of children. Store between 2 and 30 degrees C (36 and 86 degrees F). Throw away any unused medicine after the expiration date. What should I tell my health care provider before I take this medicine? They need to know if you have any of these conditions: heart disease history of irregular heartbeat liver disease low levels of magnesium or potassium in the blood an unusual or allergic reaction to ondansetron, granisetron, other medicines, foods, dyes, or preservatives or trying to get breast-feeding What should I watch for while using this medicine? Check with your doctor or health post acute care registered nurse as soon as you can if you have any sign of an allergic reaction. Diazepam Oral tablet What is this medicine? DIAZEPAM (dye AZ e aubree) is a benzodiazepine. It is used to treat anxiety and nervousness. It also can help treat alcohol withdrawal, relax muscles, and treat certain types of seizures. How should I use this medicine? Take this medicine by mouth with a glass of water. Follow the directions on the prescription label. If this medicine upsets your stomach, take it with food or milk. Take your doses at regular intervals. Do not take your medicine more often than directed. If you have been taking this medicine regularly for some time, do not suddenly stop taking it. You must gradually reduce the dose or you may get severe side effects. Ask your doctor or health post acute care registered nurse for advice. Even after you stop taking this medicine it can still affect your body for several days. Talk to your banking center manager regarding the use of this medicine in children. Special care may be needed. What side effects may I notice from receiving this medicine? Side effects that you should report to your doctor or health post acute care registered nurse as soon as possible: allergic reactions like skin rash, itching or hives, swelling of the face, lips, or tongue angry, confused, depressed, other mood changes breathing problems feeling faint or lightheaded, falls muscle cramps problems with balance, talking, walking restlessness tremors trouble passing urine or change in the amount of urine unusually weak or tired Side effects that usually do not require medical attention (report to your doctor or health post acute care registered nurse if they continue or are bothersome): difficulty sleeping, nightmares dizziness, drowsiness, clumsiness, or unsteadiness, a hangover effect headache nausea, vomiting What may interact with this medicine? cimetidine grapefruit juice herbal or dietary supplements like kava kava, melatonin, [place]'s Wort, or valerian medicines for anxiety or sleeping problems, like alprazolam, lorazepam, or triazolam medicines for depression, mental problems or psychiatric disturbances medicines for HIV infection or AIDS prescription pain medicines rifampin, rifapentine, or rifabutin some medicines for seizures like carbamazepine, phenobarbital, phenytoin, or primidone What if I miss a dose? If you miss a dose, take it as soon as you can. If it is almost time for your next dose, take only that dose. Do not take double or extra doses. Where should I keep my medicine? Keep out of the reach of children. This medicine can be abused. Keep your medicine in a safe place to protect it from theft. Do not share this medicine with anyone. Selling or giving away this medicine is dangerous and against the law. Store at room temperature between 15 and 30 degrees C (59 and 86 degrees F). Protect from light. Keep container tightly closed. Throw away any unused medicine after the expiration date. What should I tell my health care provider before I take this medicine? They need to know if you have any of these conditions an alcohol or drug abuse problem bipolar disorder, depression, psychosis or other mental health condition glaucoma kidney or liver disease lung or breathing disease myasthenia gravis Parkinson's disease seizures or a history of seizures suicidal thoughts an unusual or allergic reaction to diazepam, other benzodiazepines, foods, dyes, or preservatives or trying to get breast-feeding What should I watch for while using this medicine? Visit your doctor or health post acute care registered nurse for regular checks on your progress. Your body can become dependent on this medicine. Ask your doctor or health post acute care registered nurse if you still need to take it. You may get drowsy or dizzy. Do not drive, use machinery, or do anything that needs mental alertness until you know how this medicine affects you. To reduce the risk of dizzy and fainting spells, do not stand or sit up quickly, especially if you are an older patient. Alcohol may increase dizziness and drowsiness. Avoid alcoholic drinks. Do not treat yourself for coughs, colds or allergies without asking your doctor or health post acute care registered nurse for advice. Some ingredients can increase possible side effects. Meclizine Hydrochloride Oral tablet What is this medicine? MECLIZINE (LESLEY montes) is an antihistamine. It is used to prevent nausea, vomiting, or dizziness caused by motion sickness. It is also used to prevent and treat vertigo (extreme dizziness or a feeling that you or your surroundings are tilting or spinning around). How should I use this medicine? Take this medicine by mouth with a glass of water. Follow the directions on the prescription label. If you are using this medicine to prevent motion sickness, take the dose at least 1 hour before travel. If it upsets your stomach, take it with food or milk. Take your doses at regular intervals. Do not take your medicine more often than directed. Talk to your banking center manager regarding the use of this medicine in children. Special care may be needed. What side effects may I notice from receiving this medicine? Side effects that you should report to your doctor or health post acute care registered nurse as soon as possible: fainting spells fast or irregular heartbeat Side effects that usually do not require medical attention (report to your doctor or health post acute care registered nurse if they continue or are bothersome): constipation difficulty passing urine difficulty sleeping headache stomach upset What may interact with this medicine? barbiturate medicines for inducing sleep or treating seizures digoxin medicines for anxiety or sleeping problems, like alprazolam, diazepam or temazepam medicines for hay fever and other allergies medicines for mental depression medicines for movement abnormalities as in Parkinson's disease, or for stomach problems medicines for pain medicines that relax muscles What if I miss a dose? If you miss a dose, take it as soon as you can. If it is almost time for your next dose, take only that dose. Do not take double or extra doses. Where should I keep my medicine? Keep out of the reach of children. Store at room temperature between 15 and 30 degrees C (59 and 86 degrees F). Keep container tightly closed. Throw away any unused medicine after the expiration date. What should I tell my health care provider before I take this medicine? They need to know if you have any of these conditions: asthma glaucoma prostate trouble stomach problems urinary problems an unusual or allergic reaction to meclizine, other medicines, foods, dyes, or preservatives or trying to get breast-feeding What should I watch for while using this medicine? If you are taking this medicine on a regular schedule, visit your doctor or health post acute care registered nurse for regular checks on your progress. You may get dizzy, drowsy or have blurred vision. Do not drive, use machinery, or do anything that needs mental alertness until you know how this medicine affects you. Do not stand or sit up quickly, especially if you are an older patient. This reduces the risk of dizzy or fainting spells. Alcohol can increase possible dizziness. Avoid alcoholic drinks. Your mouth may get dry. Chewing sugarless gum or sucking hard candy, and drinking plenty of water may help. Contact your doctor if the problem does not go away or is severe. This medicine may cause dry eyes and blurred vision. If you wear contact lenses you may feel some discomfort. Lubricating drops may help. See your eye doctor if the problem does not go away or is severe. You have been given the following additional information: Dizziness, Unk Cause Vertigo, Unspecified Diarrhea, Unk Cause (Adult) Report Pendg Ondansetron Oral disintegrating tablet Diazepam Oral tablet Meclizine Hydrochloride Oral tablet Do not work for three days. (Electronically signed by Javier Peña DO 12/21/2016 17:16)
--- NOTE | 2016-12-21 17:16 | ED MED RECONCILIATION SUMMARY ---
Patient: LUIS CALDERÓN Medication Reconciliation Report [facility] VisitID: [id number] [address] [place] [address] 56y, F Registration Date/Time: 12/21/2016 Weight: 65.7 kg Height/Length: 62 in. BMI: 26.5 ALLERGIES: Aspirin The patient's Home Medications are listed below: CONTINUE TAKING THE FOLLOWING MEDICATIONS: Zantac Oral The source(s) of the original Home Medication information: Not obtained. The following Medications were given to the patient in the Emergency Department: IV NS IV Fluids bolus 0, then 1000 mL/hr, administered: 12/21/2016 12:08:00 PM Zofran [IVP] IVP 4 mg, administered: 12/21/2016 12:46:00 PM IV NS IV Fluids bolus 0, then 500 mL/hr, administered: 12/21/2016 1:10:00 PM PHENERGAN [IVP] IVP 12.5 mg, administered: 12/21/2016 1:13:00 PM The following Medications were prescribed to the patient: Zofran (orally disintegrating tablets) 4 mg: take 1-2 orally every 8 hours as needed for nausea and vomiting. Dispense ten (10). No refill. Substitution is permissible. -- Javier Peña DO Valium 5 mg: Take 1 orally every 8 hours as needed for anxiety. Dispense fifteen (15). No refills. Substitution is permissible. -- Javier Peña DO Antivert 25mg: Take 1 tablet orally every 8 hours as needed for dizziness. Dispense thirty (30). No refills. Substitution is permissible. -- Javier Peña DO
== END 2016-12-21 14:37 | disposition home or self-care (01) ==
LOC: ED SRH 11:36
DX: R42 Dizziness and giddiness (principal); R19.7 Diarrhea, unspecified; K21.9 Gastro-esophageal reflux disease without esophagitis
CPT/HCPCS: 90100; 90616; 91320; 92530; 92610; 92720; 94060; 95059